=== PATIENT | male | born 1985 | race Caucasian/White ===

== ENCOUNTER 2023-02-02 01:42 | Emergency (ER) | payer BC, OTHER ==
[2023-02-02] MEDS ORDERED: HYDROmorphone 1 MG/ML Syringe IVPUSH ONE (02:01)
[2023-02-02] MEDS ORDERED: Sodium Chloride 0.9% 2.5 ML Syringe FLUSH PRN (02:01)
[2023-02-02] MEDS ORDERED: Ondansetron 4 MG/2 ML SDV IVPUSH ONE (02:01)
[2023-02-02] MEDS ORDERED: Sodium Chloride 0.9% 10 ML Syringe FLUSH PRN (02:01)
[2023-02-02] MEDS ORDERED: Ketorolac 30 MG/ML SDV IVPUSH ONE (02:01)
[2023-02-02 02:11] LABS: APPEARANCE,URINE CLEAR; BILIRUBIN,URINE NEGATIVE (NEGATIVE); COLOR,URINE YELLOW; GLUCOSE,URINE NEGATIVE (NEGATIVE); KETONES,URINE NEGATIVE (NEGATIVE); LEUKOCYTE ESTERASE,URINE NEGATIVE (NEGATIVE); NITRITE,URINE NEGATIVE (NEGATIVE); OCCULT BLOOD,URINE NEGATIVE (NEGATIVE); PROTEIN,URINE NEGATIVE (NEGATIVE)
[2023-02-02 02:37] LABS: CALCIUM 8.9 mg/dL (8.5-10.1); CARBON DIOXIDE,CO2 26.9 mmol/L (21.0-32.0); CREATININE 1.1 mg/dL (0.8-1.3); EST CRCL DRUG DOSING (CG) 101.9 mL/min; POTASSIUM,K 3.5 mmol/L (3.5-5.1)
== END 2023-02-02 03:07 | disposition home or self-care (01) ==
LOC: MW.ED 01:42
DX: N20.2 Calculus of kidney with calculus of ureter (principal)
CPT/HCPCS: 36415; 74176; 80048; 81003; 96374; 96375; 99284; J1170; J1885; J2405; J3490